=== PATIENT | female | born 1965 | race Caucasian/White ===

== ENCOUNTER 2022-11-02 21:57 | Emergency (ER) | payer MEDICARE, BC ==
[~2022-11-02] VITALS: Ht 170.2 cm; Wt 61.2 kg
[2022-11-02] MEDS ORDERED: HALOPERIDOL LACTATE 5 MG/1 ML VIAL IM ONE (22:00)
[2022-11-02] MEDS ORDERED: IV NORMAL SALINE 1000 ML BAG IV ONE (22:00)
[2022-11-02] MEDS ORDERED: diphenhydrAMINE 50 MG/1 ML VIAL IM ONE (22:00)
[2022-11-02] MEDS ORDERED: LORAZEPAM 2 MG/1 ML VIAL IM ONE (22:00)
[2022-11-02] MEDS ORDERED: HALOPERIDOL LACTATE 5 MG/1 ML VIAL ONE (22:19)
[2022-11-02] MEDS ORDERED: diphenhydrAMINE 50 MG/1 ML VIAL ONE (22:19)
[2022-11-02] MEDS ORDERED: LORAZEPAM 2 MG/1 ML VIAL ONE (22:20)
[2022-11-02] MEDS ORDERED: BUPR300T52 PO (22:29)
[2022-11-02] MEDS ORDERED: HYDR25CA PO (22:29)
[2022-11-02] MEDS ORDERED: GABA-532 PO (22:29)
[2022-11-02] MEDS ORDERED: LURA40TA PO (22:29)
[2022-11-02 22:43] LABS: HEMATOCRIT 45.4 % (31.2-41.9); MEAN CORPUSCULAR HEMOGLOBIN 32.8 uug (24.7-32.8); MEAN CORPUSCULAR VOLUME 96.4 fL (75.5-95.3); PLATELET COUNT (AUTO) 244 K/uL (179-408)
--- NOTE | 2022-11-02 22:51 | NUR ---
Called poison control for overdose instructions and parameters.
[2022-11-02 22:56] LABS: ETHANOL < 3 MG/DL (0-0)
[2022-11-02 22:59] LABS: CARBON DIOXIDE 28 mmol/L (21-32); CHLORIDE 100 mmol/L (98-107); CREATININE 0.8 mg/dL (0.6-1.3); GLUCOSE 100 mg/dL (74-106); MAGNESIUM 2.3 mg/dL (1.8-2.4); POTASSIUM 3.7 mmol/L (3.5-5.1); UREA NITROGEN, BLOOD 14 mg/dL (7-18)
--- NOTE | 2022-11-02 22:59 | NUR ---
perineal care done
--- NOTE | 2022-11-02 23:08 | NUR ---
Araseli booth in [facility] - 11/03/22 at 0102 by ROBERT Patient isamar SI at bedside
[2022-11-02 23:15] LABS: ACETAMINOPHEN < 2.0 ug/mL (10-30); ALANINE AMINOTRANSFERASE 19 U/L (14-59); ALKALINE PHOSPHATASE 87 U/L (50-136); ASPARTATE AMINOTRANSFERASE 12 U/L (15-37); BILIRUBIN,DIRECT 0.1 mg/dL (0.0-0.2); BILIRUBIN,TOTAL 0.4 mg/dL (0.2-1.0); TOTAL PROTEIN, SERUM 6.7 g/dL (6.4-8.2)
[2022-11-03 00:02] LABS: *BILIRUBIN,URIN NEGATIVE (NEGATIVE); *BLOOD, URINE NEGATIVE (NEGATIVE); *CLARITY,URINE CLEAR (CLEAR); *COLOR,URINE YELLOW (YELLOW); *KETONES,URINE NEGATIVE (NEGATIVE); *UROBILINOGEN,URINE 0.2 E.U./dl (NORMAL); NITRITE, URINE NEGATIVE (NEGATIVE); PH,URINE 5.5 (5.0-8.0); UGLUCOSE NEGATIVE (NEGATIVE)
[2022-11-03 00:09] LABS: LEUKOCYTE ESTERASE ,URINE NEGATIVE (NEGATIVE)
[2022-11-03 00:11] LABS: *AMPHETAMINE, URINE NEGATIVE (NEGATIVE); *CANNABINOID, URINE NEGATIVE (NEGATIVE); *COCCAINE, URINE NEGATIVE (NEGATIVE); *PHENCYCLIDINE SCREEN,URINE NEGATIVE (NEGATIVE)
--- NOTE | 2022-11-03 00:45 | NUR ---
Per Senior Director Finance Dipesh Wilkerson, unable to evaluate the patient at the moment because the patient is too sedated. Was told to call block and case maker medical liaison in the morning once patient is awake
[2022-11-03] MEDS ORDERED: CYANOCOBALAMIN 1000 MCG/ML VIAL IM ONE (04:15)
[2022-11-03] MEDS ORDERED: CYANOCOBALAMIN 1000 MCG/ML VIAL ONE (04:18)
--- NOTE | 2022-11-03 06:40 | NUR ---
Endorsed to Fletcher ELIZONDO
--- NOTE | 2022-11-03 08:21 | NUR ---
CRISIS VIDEO PRODUCTION ASSISTANT ESVIN WAS CALLED TO EVALUATE PT. ETA IS 1 HOUR.
--- NOTE | 2022-11-03 10:43 | NUR ---
POISON COTROL STRAIGHT PIN MAKING MACHINE OPERATOR DILMA CALLED TO [facility] WITH INFORMATION ABOUT PT's CASE [id number] WAS CLOSED.
--- NOTE | 2022-11-03 11:42 | NUR ---
PT WAS EVALUATED BY CRISIS INSTRUMENTATION MANAGER CESAR. PT WAS PLACED ON /50 HOLD SUICIDAL. CONTINUE TO MONITOR THE PT.
--- NOTE | 2022-11-03 12:27 | NUR ---
PT IS GOING TO BE TRANSFERED TO [facility]. ACCEPTING MD IS DR MARTINEZ. ETA FOR AMBULANCE TRANSFER IS 2 HOURS.
--- NOTE | 2022-11-03 12:38 | NUR ---
REPORT GIVEN TO CARO HELMS FROM [facility].
--- NOTE | 2022-11-03 14:06 | NUR ---
SW consult requested for a 56 year old patient in the ER. GABRIEL called [facility] ([phone]) at the patient's bedside and spoke with officer Nataliia. Officer Nataliia states that an animal control agent will be able to picking crew supervisor the patient's puppy. GABRIEL informed officer Nataliia that the patient is getting transferred to [facility] today.
[2022-11-03] MEDS ORDERED: LORAZEPAM 2 MG/1 ML VIAL IM ONE (14:15)
[2022-11-03] MEDS ORDERED: HALOPERIDOL LACTATE 5 MG/1 ML VIAL IM ONE (14:15)
--- NOTE | 2022-11-03 14:20 | NUR ---
PT WAS TRANSFERED TO [facility] VIA BLS AMBULANCE. REPORT WAS GIVEN TO EMT TECHNITIAN.
== END 2022-11-03 14:25 ==
LOC: ER 21:59 → EDBD 21:59 → ER 11-03 14:25
DX: T65.92XA Toxic effect of unspecified substance, intentional self-harm, initial encounter (principal); F23 Brief psychotic disorder; R45.851 Suicidal ideations; R45.88 Nonsuicidal self-harm; S60.812A Abrasion of left wrist, initial encounter; X78.9XXA Intentional self-harm by unspecified sharp object, initial encounter; Y92.89 Other specified places as the place of occurrence of the external cause; Z91.51 Personal history of suicidal behavior; Z79.899 Other long term (current) drug therapy; Z20.822 Contact with and (suspected) exposure to COVID-19
CPT/HCPCS: 80076; 80048; 81003; 82607; 83735; 85025; 87426; 36415; 93005; 99285; 96360; 96372 ×3; 83605; 80299; 80320; 80307; J1200; J1630; J2060; J7040; J3420; G0480